=== PATIENT | female | born 1970 | race African-American/Black ===

== ENCOUNTER 2019-02-23 13:53 | Emergency (ER) | payer OTHER ==
[~2019-02-23] VITALS: Ht 160 cm; Wt 72.6 kg
[2019-02-23] MEDS ORDERED: PROTONIX40 M1 PO (14:07)
[2019-02-23] MEDS ORDERED: XANAX1 MG PO (14:07)
[2019-02-23] MEDS ORDERED: AMBIEN 10 MG TA10 MG PO (14:08)
[2019-02-23] MEDS ORDERED: CELEXA10 MG PO (14:08)
[2019-02-23] MEDS ORDERED: TRAMADOL 50 MG50 MG PO (15:35)
[2019-02-23 15:39] VITALS: BP 132/93
[2019-02-23] MEDS ORDERED: NORCO 5-325 TA1 EAC1 PO (15:42)
== END 2019-02-23 15:45 | disposition home or self-care (01) ==
LOC: ER 13:53
DX: S86.911A Strain of unspecified muscle(s) and tendon(s) at lower leg level, right leg, initial encounter (principal); X58.XXXA Exposure to other specified factors, initial encounter; Y93.89 Activity, other specified; Y92.89 Other specified places as the place of occurrence of the external cause; Y99.8 Other external cause status

== ENCOUNTER → 2019-02-23 | Outpatient (CLI) | payer OTHER ==
[~2019-02-23] MED LIST: AMBIEN 10 MG TA10 MG PO; CELEXA10 MG PO; NORCO 5-325 TA1 EAC1 PO; PROTONIX40 M1 PO; TRAMADOL 50 MG50 MG PO; XANAX1 MG PO
== END | disposition home or self-care (01) ==
LOC: ULTRA 12:24
DX: R10.2 Pelvic and perineal pain (principal); N95.0 Postmenopausal bleeding; D25.9 Leiomyoma of uterus, unspecified

== ENCOUNTER 2019-10-16 22:12 | Emergency (ER) | payer OTHER ==
[~2019-10-16] VITALS: Ht 160 cm; Wt 74.8 kg
[2019-10-16] MEDS ORDERED: NORFLEX100 MG PO (23:07)
[2019-10-16] MEDS ORDERED: ULTRAM 50MG TAB50 MG PO (23:07)
[2019-10-16 23:54] VITALS: BP 138/95
[2019-10-16] MEDS ORDERED: NORCO 5-325 TA1 EAC1 PO (23:58)
[2019-10-16] MEDS ORDERED: SENNA-DOCUSATE1 EAC1 PO (23:58)
== END 2019-10-17 00:14 | disposition home or self-care (01) ==
LOC: ER 22:12
DX: S16.1XXA Strain of muscle, fascia and tendon at neck level, initial encounter (principal); Z79.899 Other long term (current) drug therapy; Z88.1 Allergy status to other antibiotic agents; Z88.8 Allergy status to other drugs, medicaments and biological substances; X58.XXXA Exposure to other specified factors, initial encounter; Y92.89 Other specified places as the place of occurrence of the external cause; Y99.8 Other external cause status